=== PATIENT | male | born 1990 | race Hispanic/Latino ===

== ENCOUNTER → 2016-10-02 | Outpatient (REF) | payer SELFPAY | LOC: M LAB REF 09:26 | PROVIDERS: ATTEND Physician Assistant Medical | DX: R30.0 Dysuria (principal); Z72.51 High risk heterosexual behavior ==

== ENCOUNTER → 2016-10-03 | Outpatient (CLI) | payer SELFPAY | LOC: M ADAMS 10:29 | PROVIDERS: ATTEND Physician Assistant Medical | DX: R30.0 Dysuria (principal); Z72.51 High risk heterosexual behavior ==

== ENCOUNTER → 2017-04-10 | Outpatient (CLI) | payer SELFPAY ==
--- NOTE | 2017-04-10 09:30 | REP ---
Thoracic spine three views: There are no comparisons. Vertebral body heights, interspacing alignment are normal. Mineralization is normal. No compression deformities or listhesis. The pedicles are unremarkable. Impression: Negative thoracic spine. Signed by Torres Cho MD 04/10/2017 09:22 A
== END ==
LOC: M ADAMS 08:35
PROVIDERS: ATTEND Physician Assistant Medical
DX: M54.6 Pain in thoracic spine (principal)